=== PATIENT | male | born 1995 | race African-American/Black ===

== ENCOUNTER 2017-04-18 09:22 | Emergency (ER) | payer MEDICAID ==
[~2017-04-18] VITALS: Ht 180.3 cm; Wt 74.8 kg
[2017-04-18 09:26] VITALS: BP 116/75
[2017-04-18] MEDS ORDERED: NKM (09:31)
[2017-04-18] MEDS ORDERED: CLOTRIMAZOLE15 GM TOPIC (09:49)
[2017-04-18 10:05] VITALS: BP 120/72
--- NOTE | 2017-04-19 14:43 | Emergency Room Report ---
History of Present Illness General Chief Complaint: General Complaint Source: Patient Present Illness HPI 21-year-old male presents to ED for dilation. Patient states he is here because he has a rash to his toes. States he is "athlete's foot. Has used prescription cream in the past with some relief. Did not have any medication at this point. Patient denies any pain. States it is very itchy. Patient also requesting TB test. States that he is homeless and needs a for [place] [facility]. Denies any cough. Denies any chills or night sweats. No aggravating relieving factors. Denies any other associated symptom Allergies: Coded Allergies: No Known Allergies (Unverified , 04/18/17) Patient History Past Medical History: psych hx Past Surgical History: none Pertinent Family History: none Social History: Denies: smoking, alcohol use, drug use Immunizations: UTD Reviewed Nursing Documentation: PMH: Agreed, PSxH: Agreed Nursing Documentation-PMH History Of Psychiatric Problem: Yes - ADHD; Schizzophrenia Review of Systems All Other Systems: negative except mentioned in HPI Physical Exam Vital Signs Date Time Temp Pulse Resp B/P (MAP) Pulse Ox O2 Delivery O2 Flow Rate FiO2 04/18/17 09:26 98.1 79 16 116/75 68 Room Air Sp02 EP Interpretation: reviewed, normal General Appearance: no apparent distress, alert, GCS 15, non-toxic Head: normocephalic, atraumatic Eyes: bilateral eye normal inspection, bilateral eye PERRL ENT: hearing grossly normal, normal pharynx, no angioedema, normal voice Neck: full range of motion, supple/symm/no masses Respiratory: chest non-tender, lungs clear, normal breath sounds, speaking full sentences Cardiovascular #1: regular rate, rhythm, no edema Cardiovascular #2: 2+ carotid (R), 2+ carotid (L), 2+ radial (R), 2+ radial (L) , 2+ dorsalis pedis (R), 2+ dorsalis pedis (L) Gastrointestinal: normal bowel sounds, non tender, soft, non-distended, no guarding, no rebound Rectal: deferred Genitourinary: normal inspection, no CVA tenderness Musculoskeletal: back normal, gait/station normal, normal range of motion, non- tender Neurologic: alert, oriented x3, responsive, motor strength/tone normal, sensory intact, speech normal Psychiatric: judgement/insight normal, memory normal, mood/affect normal, no suicidal/homicidal ideation Reflexes: 3+ bicep (R), 3+ bicep (L), 3+ tricep (R), 3+ tricep (L), 3+ knee (R) , 3+ knee (L) Skin: normal color, warm/dry, well hydrated, other - macerated skin between toes on biateral feet. no induration/erythema Lymphatic: no adenopathy Medical Decision Making Diagnostic Impression: Primary Impression: Athletes foot Qualified Codes: B35.3 - Tinea pedis ER Course Hospital Course 21-year-old male presents to ED with rash to toes Differential diagnoses include: Cellulitis, dermatitis, insect bite, abscess Clinical course Patient placed on stretcher. After initial history, physical exam reveals a young male in no acute distress. On exam there is macerated skin between toes on both feet. consistent with athletes foot Patient appears well and nontoxic. Afebrile. Lungs clear. No clinical evidence suggestive of TB. I explained to the patient we do not perform TB testing in ED Diagnosis - athletes foot. stable and discharged to home with prescription for Lotrimin. Instructed to followup with PMD. Instructed return to ED if symptoms recur or worsen Last Vital Signs Date Time Temp Pulse Resp B/P (MAP) Pulse Ox O2 Delivery O2 Flow Rate FiO2 04/18/17 10:05 98.1 19 120/72 100 Room Air 04/18/17 09:26 79 Status: improved Disposition: HOME, SELF-CARE Condition: Stable Scripts Clotrimazole* (LOTRIMIN*) 15 Gm Cream..g. 1 APPLIC TOPIC TWICE A DAY, #15 GM Prov: ELA MCCARTHY M.D. 04/18/17 Referrals: NOT CHOSEN IPA/,REFERRING (PCP) Patient Instructions: Athlete's Foot, [id number] ELA MCCARTHY M.D. Apr 19, 2017 14:43
== END 2017-04-18 10:05 | disposition home or self-care (01) ==
LOC: EMR 10:00
DX: B35.3 Tinea pedis (principal); F20.9 Schizophrenia, unspecified; F90.9 Attention-deficit hyperactivity disorder, unspecified type
CPT/HCPCS: 99283